=== PATIENT | female | born 1995 | race African-American/Black ===

== ENCOUNTER 2021-12-14 18:16 | Emergency (ER) | payer OTHER ==
[2021-12-14] MEDS ORDERED: Ibuprofen 200 MG TAB ONE (19:21)
== END 2021-12-14 20:09 | disposition home or self-care (01) ==
LOC: CSHERS 18:16
DX: S93.402A Sprain of unspecified ligament of left ankle, initial encounter (principal); S33.8XXA Sprain of other parts of lumbar spine and pelvis, initial encounter; X58.XXXA Exposure to other specified factors, initial encounter
CPT/HCPCS: 72220

== ENCOUNTER 2022-11-08 23:45 | Emergency (ER) | payer OTHER ==
[2022-11-09 00:45] LABS: SARS-CoV-2 NAA Rapid Test Not Detected (NotDetected)
== END 2022-11-09 00:15 | disposition home or self-care (01) ==
LOC: CSHERS 23:45
DX: R09.81 Nasal congestion (principal); Z20.822 Contact with and (suspected) exposure to COVID-19
CPT/HCPCS: 99283; U0002

== ENCOUNTER 2024-05-24 09:51 | Emergency (ER) | payer OTHER | END 2024-05-24 12:17 | disposition home or self-care (01) | LOC: CSHERS 09:51 | DX: O02.81 Inappropriate change in quantitative human chorionic gonadotropin (hCG) in early pregnancy (principal); Z3A.01 Less than 8 weeks gestation of pregnancy | CPT/HCPCS: 84702; 99283 ==

== ENCOUNTER 2024-05-28 09:05 | Emergency (ER) | payer OTHER | END 2024-05-28 13:28 | disposition home or self-care (01) | LOC: CSHERS 09:05 | DX: Z32.01 Encounter for pregnancy test, result positive (principal) | CPT/HCPCS: 36415; 76856; 84702 ==

== ENCOUNTER 2024-06-05 08:36 | Emergency (ER) | payer OTHER ==
[2024-06-05 09:52] LABS: #Basophils 0.02 10x3/uL (0.0-0.2); #Eosinophils 0.21 10x3/uL (0.0-0.5); #Neutrophils 3.18 10x3/uL (1.5-8.4); %Basophils 0.4 % (0.0-2.0); %Eosinophils 3.8 % (0.0-6.0); %Lymphocytes 32.1 % (18.0-47.0); %Monocytes 5.5 % (0.0-10.0); %Neutrophils 57.8 % (40.0-75.0); Hematocrit 32.3 % (34.9-44.5); Hemoglobin 9.7 g/dL (12.0-15.5); Mean Corpuscular Hemoglobin 25.1 pg (27.0-33.0); Mean Corpuscular Volume 83.5 fL (81.6-98.3); Mean Platelet Volume 10.9 fL (7.4-10.4); Platelet Count 251 10x3/uL (150-450); Red Blood Cell (RBC) Count 3.87 10x6/uL (3.90-5.03); White Blood Cell (WBC) Count 5.5 10x3/uL (3.5-10.5)
[2024-06-05 10:07] LABS: ALT (SGPT) 17 U/L (8-55); AST (SGOT) 13 U/L (5-34); Albumin 3.5 g/dL (3.5-5.0); Alkaline Phosphatase 36 U/L (40-110); Anion Gap 13 mmol/L (10-20); BUN (Urea Nitrogen) 14 mg/dL (7.0-18.7); Bilirubin, Total 0.3 mg/dL (0.2-1.2); Calc. Creatinine Clearance 0 mL/min (70-130); Carbon Dioxide 21 mmol/L (22-29); Chloride 108 mmol/L (98-107); Estimated GFR 108; Globulin 3.1 g/dL (2.4-3.5); Glucose 122 mg/dL (70-105); Potassium 3.8 mmol/L (3.5-5.1); Protein, Total 6.6 g/dL (6.0-8.3); Sodium 138 mmol/L (136-145)
== END 2024-06-05 12:28 | disposition home or self-care (01) ==
LOC: CSHERS 08:36
DX: O00.90 Unspecified ectopic pregnancy without intrauterine pregnancy (principal); Z3A.00 Weeks of gestation of pregnancy not specified
CPT/HCPCS: 76805; 80053; 84702; 85025

== ENCOUNTER 2024-06-06 07:00 | Day surgery (SDC) | payer OTHER ==
[2024-06-05 14:41] VITALS: BMI 36.4
[2024-06-06] MEDS ORDERED: Famotidine/PF 20 mg/2ml Vial ONE (07:52)
[2024-06-06] MEDS ORDERED: Midazolam HCl 2 mg/2 ml Vial ONE (07:52)
[2024-06-06] MEDS ORDERED: PROPOFOL 20 ML ONE (08:03)
[2024-06-06] MEDS ORDERED: SUGAMMADEX SODIUM 200 MG/2 ML VIAL ONE (08:04)
[2024-06-06] MEDS ORDERED: Ondansetron PF 4 MG/2 ML Vial ONE (08:04)
[2024-06-06] MEDS ORDERED: Lidocaine 2% PF 5 ML VIAL ONE (08:04)
[2024-06-06] MEDS ORDERED: Dexamethasone 4 mg/ml Vial ONE (08:04)
[2024-06-06] MEDS ORDERED: Rocuronium Bromide 10 MG/ML (10ML VIAL) ONE (08:04)
[2024-06-06] MEDS ORDERED: Ketorolac Tromethamine 30 MG (1 mL) VIAL ONE (08:04)
[2024-06-06] MEDS ORDERED: Metoclopramide HCl 10 MG (2 mL) VIAL ONE (08:04)
[2024-06-06] MEDS ORDERED: fentaNYL 50 mcg/mL 1 mL Vial ONE ×2 (08:04→09:06)
[2024-06-06] MEDS ORDERED: Bupivacaine HCl 0.5%/Epinephrine 1:200,000/PF 30 ml Vial ONE (08:10)
[2024-06-06] MEDS ORDERED: CEFAZOLIN 2 GM VIAL ONE (08:18)
[2024-06-06] MEDS ORDERED: HYDROcodone/Acetaminophen 10/325 mg Tablet PO PRN (09:29)
[2024-06-06] MEDS ORDERED: Promethazine HCl 25 MG/ML VIAL IM PRN (09:29)
[2024-06-06] MEDS ORDERED: Morphine 2 MG/ML VIAL SLOW IVP PRN (09:29)
[2024-06-06] MEDS ORDERED: Ipratropium/Albuterol 3 ML NEB NEB PRN (09:29)
[2024-06-06] MEDS ORDERED: Ondansetron PF 4 MG/2 ML Vial IVP PRN (09:29)
[2024-06-06] MEDS ORDERED: hydrALAZINE 20 MG/ML VIAL SLOW IVP PRN (09:29)
[2024-06-06] MEDS ORDERED: Lactated Ringer's 1,000 ML IV SCH (09:30)
[2024-06-06] MEDS ORDERED: Meperidine HCl/PF 25 MG (1 mL) VIAL ONE (10:15)
[2024-06-06] MEDS ORDERED: HYDROcodone/Acetaminophen 5/325 mg Tablet ONE (10:48)
[2024-06-06] MEDS ORDERED: Ketorolac Tromethamine 30 MG (1 mL) VIAL IVP SCH (16:00)
== END 2024-06-06 11:10 | disposition home or self-care (01) ==
LOC: CSHSDC 07:00
PROVIDERS: ATTEND Obstetrics & Gynecology
PROC: 10T24ZZ Resection of Products of Conception, Ectopic, Percutaneous Endoscopic Approach (ICD-10-PCS; principal; 2024-06-06)
DX: O00.102 Left tubal pregnancy without intrauterine pregnancy (principal); O99.519 Diseases of the respiratory system complicating pregnancy, unspecified trimester; J45.909 Unspecified asthma, uncomplicated; O99.340 Other mental disorders complicating pregnancy, unspecified trimester; F41.9 Anxiety disorder, unspecified; O99.210 Obesity complicating pregnancy, unspecified trimester; Z79.51 Long term (current) use of inhaled steroids; Z79.1 Long term (current) use of non-steroidal anti-inflammatories (NSAID)
CPT/HCPCS: 86850; 86900; 86901; 88305; J1100; J1885; J2175; J2250; J2405; J2704; J2765; J3010; J3490